=== PATIENT | female | born 1980 | race African-American/Black ===

== ENCOUNTER → 2020-09-12 08:20 | Outpatient (BNVA) | payer OTHER, SELFPAY | PROVIDERS: PCP Internal Medicine; Visit Provider Physician Assistant ==

== ENCOUNTER 2020-09-19 08:11 | Outpatient (REF) | payer OTHER, SELFPAY ==
[2020-09-19 08:52] LABS: MANUAL DIFF FLAG NO
[2020-09-19 09:00] LABS: Basophils Absolute Auto 0.1 X10*3/uL (0.0-0.2); Basophils Percent Auto 0.8 % (0-2); Eosinophils Absolute Auto 0.4 X10*3/uL (0.0-0.4); Eosinophils Percent Auto 6.1 % (0-4); Hematocrit 39.9 % (37-47); Hemoglobin 12.7 g/dl (12.0-16.0); Imm Gran Abs Auto 0.03 X10*3/uL (0.00-0.03); Imm Gran Pct Auto 0.5 % (0.0-0.4); Lymphocytes Absolute Auto 2.2 X10*3/uL (1.2-4.9); Mean Corpuscular HGB Conc 31.8 g/dl (31.0-35.0); Mean Corpuscular Hemoglobin 25.9 pg (27.0-33.0); Mean Corpuscular Volume 81.4 fL (80-98); Mean Platelet Volume 9.1 fL (9.4-12.3); Monocytes Absolute Auto 0.5 X10*3/uL (0.1-1.2); Monocytes Percent Auto 8.2 % (2-11); Neutrophils Absolute Auto 3.2 X10*3/uL (2.0-8.3); Neutrophils Percent Auto 50.4 % (45-73); Platelet Count 370 X10*3/uL (160-400); Red Cell Distribution Width 14.6 % (11.0-16.0); White Blood Count 6.4 X10*3/uL (4.8-10.8)
[2020-09-19 09:39] LABS: Alanine Aminotransferase 10 U/L (0-31); Alkaline Phosphatase 82 U/L (39-117); Anion Gap 9 (12-20); Aspartate Amino Transferase 16 U/L (5-31); Bilirubin Total 0.7 mg/dL (0.0-1.0); Blood Urea Nitrogen 15 mg/dL (9-16); Calcium 9.3 mg/dL (8.4-10.2); Carbon Dioxide 26 mmol/L (22-29); Chloride 104 mmol/L (96-108); Cholesterol 220 mg/dL; Estimated Glomerular Filt Rate > 60; Glucose Random 98 mg/dL (60-115); HDL Cholesterol 50 mg/dL; LDL Cholesterol Calculated 157 mg/dl; Potassium 4.3 mmol/L (3.3-5.1); Sodium 135 mmol/L (135-145); Total Protein 7.6 g/dL (6.5-8.0); Triglycerides 66 mg/dL
[2020-09-19 09:58] LABS: TSH reflex Free T4 1.09 uIU/mL (0.32-4.0); Vitamin D 25-OH Total 23.2 ng/mL (>30)
[2020-09-19 10:03] LABS: Folate 5.6 ng/mL (> or = 4.0); Vitamin B12 524 pg/mL (200-900)
[2020-09-19 10:33] LABS: Ferritin 116 ng/mL (10-250)
[2020-09-19 10:42] LABS: Estimated Average Glucose 111 mg/dL; Hemoglobin A1C 123.0232 umol/L; Hemoglobin A1c % 5.5 %
[2020-09-20 11:42] LABS: Insulin Level Total 5.3 uIU/mL
[2020-09-20 22:26] LABS: Calcium (PTHI) 9.3 mg/dL (8.6-10.2); PTHI 34 pg/mL (14-64)
[2020-09-22 01:07] LABS: Zinc 73 mcg/dL (60-130)
[2020-09-23 13:42] LABS: Vitamin B1 9 nmol/L (8-30)
[2020-09-24 04:42] LABS: Vitamin A 33 mcg/dL (38-98)
== END 2020-09-19 08:12 | disposition home or self-care (01) ==
LOC: HO.LAB 08:11
PROVIDERS: PCP Internal Medicine; Visit Provider Physician Assistant
DX: E66.9 Obesity, unspecified (principal); Z90.3 Acquired absence of stomach [part of]
CPT/HCPCS: 36415; 80053; 80061; 82306; 82607; 82728; 82746; 83036; 83525; 83970; 84425; 84443; 84590; 84630; 85025; 86140

== ENCOUNTER → 2020-10-05 08:16 | Outpatient (BNVA) | payer OTHER, SELFPAY | PROVIDERS: PCP Internal Medicine; Visit Provider Physician Assistant | DX: Z90.3 Acquired absence of stomach [part of] (principal); E66.9 Obesity, unspecified ==

== ENCOUNTER 2022-06-02 19:07 | Emergency (ER) | payer OTHER, SELFPAY ==
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
[2022-06-02 19:49] VITALS: BP 116/80; PULSE 80; RESP 18; TEMP 36.2; O2SAT 99; BMI 36.5
[2022-06-02] MEDS: Cyclobenzaprine HCl 10 MG TABLET PO (20:00)
[2022-06-02] MEDS: Ketorolac Tromethamine 60 MG/2 ML VIAL IM (20:01)
== END 2022-06-02 20:23 | disposition home or self-care (01) ==
LOC: HO.ED 20:14
PROVIDERS: Emergency Provider Emergency Medicine
DX: S39.012A Strain of muscle, fascia and tendon of lower back, initial encounter (principal); V43.52XA Car driver injured in collision with other type car in traffic accident, initial encounter; Y93.89 Activity, other specified; Y92.414 Local residential or business street as the place of occurrence of the external cause; Y99.9 Unspecified external cause status
CPT/HCPCS: 96372; 99283; 99284; J1885

== ENCOUNTER 2023-04-03 09:58 | Outpatient (REF) | payer OTHER, SELFPAY ==
[2023-04-03 11:10] LABS: MANUAL DIFF FLAG NO
[2023-04-03 11:53] LABS: Basophils Absolute Auto 0.1 X10*3/uL (0.0-0.2); Basophils Percent Auto 1.1 % (0-2); Eosinophils Absolute Auto 0.1 X10*3/uL (0.0-0.4); Eosinophils Percent Auto 1.7 % (0-4); Hematocrit 40.9 % (37.0-47.0); Hemoglobin 12.9 g/dl (12.0-16.0); Imm Gran Abs Auto 0.02 X10*3/uL (0.00-0.03); Imm Gran Pct Auto 0.3 % (0.0-0.4); Lymphocytes Absolute Auto 2.8 X10*3/uL (1.2-4.9); Lymphocytes Percent Auto 43.4 % (20-40); Mean Corpuscular HGB Conc 31.5 g/dl (31.0-35.0); Mean Corpuscular Hemoglobin 25.5 pg (27.0-33.0); Mean Corpuscular Volume 80.8 fL (80.0-98.0); Mean Platelet Volume 9.5 fL (9.4-12.3); Monocytes Absolute Auto 0.6 X10*3/uL (0.1-1.2); Monocytes Percent Auto 9.1 % (2-11); Neutrophils Absolute Auto 2.9 x10*3/uL (2.0-8.3); Neutrophils Percent Auto 44.4 % (45-73); Platelet Count 376 X10*3/uL (160-400); Red Blood Count 5.06 X10*6/uL (4.20-5.50); Red Cell Distribution Width 14.9 % (11.0-16.0); White Blood Count 6.5 X10*3/uL (4.8-10.8)
[2023-04-03 12:24] LABS: Estimated Average Glucose 111 mg/dL; Hemoglobin A1C 119.0449 umol/L; Hemoglobin A1c % 5.5 % (<6.0)
[2023-04-03 13:28] LABS: Folate 6.5 ng/mL (> or = 4.0); Vitamin B12 1059 pg/mL (200-900)
[2023-04-03 14:25] LABS: Alanine Aminotransferase 14 U/L (0-31); Alkaline Phosphatase 78 U/L (39-117); Anion Gap 10 (12-20); Aspartate Amino Transferase 17 U/L (5-31); Bilirubin Total 0.4 mg/dL (0.0-1.0); Blood Urea Nitrogen 10 mg/dL (9-16); C Reactive Protein 1.83 mg/dL (< or = 0.50); Calcium 9.4 mg/dL (8.4-10.2); Carbon Dioxide 28 mmol/L (22-29); Chloride 105 mmol/L (96-108); Cholesterol 235 mg/dL (<200); Estimated Glomerular Filt Rate > 60; Glucose Random 89 mg/dL (60-115); HDL Cholesterol 63 mg/dL (>40); Iron 44 mcg/dL (30-160); LDL Cholesterol Calculated 158 mg/dL (<100); Percent Iron Saturation 16 % (15-50); Sodium 139 mmol/L (135-145); Total Iron Binding Capacity 282 mcg/dL (228-428); Triglycerides 72 mg/dL (<150); Unsaturated Iron Binding 238 ug/dL
[2023-04-03 14:27] LABS: Ferritin 153 ng/mL (10-250); Insulin 6 uU/mL (2-29); TSH reflex Free T4 0.83 uIU/mL (0.32-4.0); Vitamin D 25-OH Total 42.8 ng/mL (>30)
[2023-04-06 13:59] LABS: Calcium (PTHI) 9.4 mg/dL (8.6-10.2); PTHI 47 pg/mL (16-77)
[2023-04-08 02:38] LABS: Zinc 76 mcg/dL (60-130)
[2023-04-08 19:59] LABS: Vitamin A 37 mcg/dL (38-98)
[2023-04-11 15:18] LABS: Vitamin B1 7 nmol/L (8-30)
== END 2023-04-03 09:59 | disposition home or self-care (01) ==
LOC: HO.LAB 09:58
PROVIDERS: Physician Assistant Surgical; Visit Provider Physician Assistant
DX: E66.9 Obesity, unspecified (principal); K91.2 Postsurgical malabsorption, not elsewhere classified; Z90.3 Acquired absence of stomach [part of]; Z79.899 Other long term (current) drug therapy
CPT/HCPCS: 36415; 80053; 80061; 82306; 82607; 82728; 82746; 83036; 83525; 83540; 83970; 84425; 84443; 84590; 84630; 85025; 86140

== ENCOUNTER 2023-04-03 09:59 | Outpatient (AMB) | payer OTHER, SELFPAY ==
--- NOTE | 2023-04-03 10:01 | A.OFFVIS_ITS ---
Intake VS Expanded 04/03/23 10:16 Height 5 ft 7 in Weight 253 lb BMI 39.6 BP 127/82 Blood Pressure Location Rt brachial Blood Pressure Position Sitting Pulse 86 Pulse Source Pulse Oximeter Temp 97.5 F Temperature Source Temporal Artery Scan Pulse Oximetry 96 Oxygen Delivery Method Room Air Body Fat 118.4 Body Fat Percentage 46.8 Free Fat Mass 134.4 Muscle Mass 127.6 Visceral Mass 13.0 Water Mass 96.0 BMR 1,908 Intake Visit Reasons: (ov) PO Lsg 12/30/17 Allergies No Known Allergies [No Known Allergies*] Allergy (Verified 04/03/23 10:13) Medication List - Last Reconciled 04/03/23 by Susanne Stearns PA-C albuterol sulfate 90 mcg/actuation inhalation budesonide-formoterol 80-4.5 mcg/actuation (Symbicort) inhalation HPI HPI Comments History of Present Illness Details Pt is 5+ years s/p LSG with insufficient weight loss, lowest weight was 240 lbs. Her last appt was 1 year ago at 262 lbs. Last labs done September 2020, post op labs were ordered last March. Went to a weight loss clinic in January and was started on Phentermine at 263 lbs for 3 months - lost 15 lbs. Pt states her goal is to weigh 200 lbs. Works from home at 8am - 4:30 pm - 5 d/week. Exercise - joined gym last month, goes 3 d/week before work - treadmill- >[address] - UE (15 lbs - 3 sets of 10) or LE (40 lbs 3 - sets of 10) machines and does planks for abds. Meal plan - coffee at 8am - sugar free creamer. 1 boiled egg and chicken pelayo OR mackerel jolanta Skips lunch 2d/ week. 12pm - leftovers from home 6 oz protein and 8 oz salad with dressing. water Afternoon snacks - crackers, quest chips and candy 7pm - fish or chicken, burger - 6 oz pro christi, always a vegetable, carbs 2 d/week - a slice of ww bread. PFSH Medical History COVID-19 Surgical History Hx laparoscopic cholecystectomy History of sleeve gastrectomy History of total abdominal hysterectomy Family History Mother Diabetes Hypertension Kidney disease Father Hypertension Brother No problems noted. Brother No problems noted. Brother No problems noted. Son No problems noted. Daughter No problems noted. Daughter No problems noted. Social History (Updated 04/18/22 @ 13:53 by Gisselle Cooper [facility]) Alcohol intake: never Patient Tobacco Use Status: Never used Tobacco Assessment & Plan Assessment & Plan (1) Obesity: Code(s): E66.9 - Obesity, unspecified Plan: Goal weight should be about 190 lbs to nohave BMI <30. Protein now 110 grams per day. 8am - coffee with protein shake -- 30 gram protein 12pm - yogurt or cc with 1/4 c berries 3pm - bar 6:30 pm - 4 oz proiten and 4 oz vegetable 9pm- - anothr shake Exercise - increase to 5d/week. Either treadmill for 400 tianna or TBP - goal of 2,000 tianna per week. Increaases set to 3 sets of 15. Will get labs drawn today and will text me her weight weekly. Next appt 3 months with me. Patient is morbidly obese and is not considered stable at this time. I spent minutes in total with patient reviewing/updating records, examining the patient and counseling the patient on weight management as detailed above. (2) History of sleeve gastrectomy: Code(s): Z90.3 - Acquired absence of stomach [part of] Coding Level of Care Code Est Pt Level 4 (31038) Diagnoses Obesity E66.9 History of sleeve gastrectomy Z90.3
[2023-04-03 10:16] VITALS: BP 127/82; PULSE 86; TEMP 36.4; O2SAT 96; BMI 39.6
== END 2023-04-03 10:49 | disposition home or self-care (01) ==
PROVIDERS: Visit Provider Physician Assistant
DX: E66.9 Obesity, unspecified (principal); Z68.39 Body mass index [BMI] 39.0-39.9, adult; Z90.3 Acquired absence of stomach [part of]; Z98.84 Bariatric surgery status
CPT/HCPCS: 99213